=== PATIENT | male | born 1970 | race Caucasian/White ===

== ENCOUNTER 2020-06-04 14:01 | Emergency (ER) | payer BC ==
[2020-06-04 14:29] LABS: HEMOGLOBIN 15.5 gm/dl (14.0-17.5); RED BLOOD COUNT 4.93 M/UL (4.20-5.50); WHITE BLOOD COUNT 4.6 K/UL (4.5-11.0)
[2020-06-04 14:57] LABS: BUN/CREATININE RATIO 12 (0-10)
[2020-06-04] MEDS ORDERED: CIPRO500 MG PO (17:17)
[2020-06-04] MEDS ORDERED: HYDROCODON-ACE1 EAC4 PO (17:22)
== END 2020-06-04 17:29 | disposition home or self-care (01) ==
LOC: ER1 14:01
PROVIDERS: Emergency Medicine
DX: R10.9 Unspecified abdominal pain (principal); R31.9 Hematuria, unspecified; M54.9 Dorsalgia, unspecified; Z90.49 Acquired absence of other specified parts of digestive tract; Z88.0 Allergy status to penicillin
CPT/HCPCS: 80053; 81001; 82150; 83690; 85025; 96374; 96375; 99284; J2270; J2405

== ENCOUNTER → 2021-05-19 | Outpatient (CLI) | payer BC ==
[~2021-05-19] MED LIST: CIPRO500 MG PO; HYDROCODON-ACE1 EAC4 PO
== END ==
LOC: KOH-I 15:12
DX: M25.511 Pain in right shoulder (principal)
CPT/HCPCS: 73030

== ENCOUNTER → 2022-01-14 | Outpatient (CLI) | payer BC | LOC: KOH-I 09:36 | DX: M25.561 Pain in right knee (principal) | CPT/HCPCS: 73562 ==